=== PATIENT | male | born 1945 | race Two or more races ===

== ENCOUNTER 2025-07-08 05:32 | Emergency (ER) | payer OTHER ==
[~2025-07-08] VITALS: Ht 177.8 cm; Wt 65.4 kg
[2025-07-08 05:39] VITALS: O2SAT 99
[2025-07-08 06:46] LABS: BASOPHILS % 0.7 % (0.0-2.0); EOSINOPHILS % 0.3 % (0.0-5.0); HEMATOCRIT. 37.4 % (42.0-52.0); HEMOGLOBIN. 12.3 g/dL (14.0-18.0); LYMPHOCYTES % 9.7 % (20.0-50.0); MEAN PLATELET VOLUME 8.4 fl (7.4-10.4); MONOCYTES % 3.9 % (2.0-8.0); NEUTROPHILS % 85.4 % (40.0-76.0); PLATELET 197 x1000/uL (130-400); RED BLOOD CELL COUNT 3.85 mill/uL (4.7-6.1); RED CELL DISTRIBUTION WIDTH 14.5 % (11.6-14.6)
[2025-07-08 07:02] LABS: CREATININE 0.9 mg/dL (0.6-1.3)
[2025-07-08 07:03] LABS: TROPONIN I HIGH SENSITIVITY 6 ng/L (3.0-53); UREA NITROGEN BLOOD 9 mg/dL (9-23)
[2025-07-08 07:04] LABS: ASPARTATE AMINOTRANSFERASE 45 IU/L (<34)
[2025-07-08 07:05] LABS: BILIRUBIN DIRECT 0.2 mg/dL (<=3.0); BILIRUBIN TOTAL 0.6 mg/dL (0.1-1.0); PROTEIN TOTAL 5.9 g/dL (6.0-8.3)
[2025-07-08] MEDS: IOHEXOL-350 100 ML BOTTLE ONE (07:08)
[2025-07-08 07:26] LABS: CLARITY URINE CLEAR (CLEAR); COLOR URINE YELLOW (YELLOW); GLUCOSE URINE NEGATIVE (NEGATIVE); KETONES URINE NEGATIVE (NEGATIVE); LEUKOCYTE ESTERASE URINE NEGATIVE (NEGATIVE); NITRITE URINE NEGATIVE (NEGATIVE); OCCULT BLOOD URINE NEGATIVE (NEGATIVE); PH URINE 6.0 (4.5-8.0); PROTEIN URINE NEGATIVE (NEGATIVE); SPECIFIC GRAVITY URINE 1.024 (1.005-1.030); UROBILINOGEN URINE 0.2 E.U./dL (0.2-1.0)
[2025-07-08] MEDS: PIPERACILLIN/TAZO 3.375G/50ML 50 ML IV STA (07:32)
[2025-07-08] MEDS: LACTATED RINGERS 500 ML IV SCH (07:33)
[2025-07-08 07:50] LABS: *AMPHETAMINES SCREEN URINE NEGATIVE (NEGATIVE); *BARBITURATES SCREEN URINE NEGATIVE (NEGATIVE); *BENZODIAZEPINES SCREEN URINE NEGATIVE (NEGATIVE); *COCAINE SCREEN URINE NEGATIVE (NEGATIVE); CANNABINOID URINE SCREEN NEGATIVE (NEGATIVE); ECSTASY MDMA SCREEN URINE NEGATIVE (NEGATIVE); METHADONE URINE SCREEN NEGATIVE (NEGATIVE); OPIATES URINE SCREEN NEGATIVE (NEGATIVE); PHENCYCLIDINE URINE SCREEN NEGATIVE (NEGATIVE)
[2025-07-08 08:00] LABS: INR 1.1
[2025-07-08 10:09] VITALS: BP 159/96; PULSE 88; RESP 20; TEMP 36.7; O2SAT 99
== END 2025-07-08 10:24 | disposition admitted as inpatient to this hospital (09) ==
LOC: ER 05:32 → EDBEDREQ 05:51 → ER 10:24 → CMPBEDREQ 11:18
DX: R41.82 Altered mental status, unspecified (principal); I10 Essential (primary) hypertension; E11.9 Type 2 diabetes mellitus without complications; Z79.899 Other long term (current) drug therapy
CPT/HCPCS: 80076; 80305; 80048; 81003; 80320; 82962; 85025; 85610; 85730; 87040; 84484; 36415; 71045; 70496; 70498; 70450; 93005; 96365; 99291; Q9967; J2543; G0480

== ENCOUNTER 2025-08-12 23:11 | Emergency (ER) | payer OTHER ==
[~2025-08-12] VITALS: Ht 182.9 cm; Wt 82.0 kg
[2025-08-12 23:24] VITALS: O2SAT 100
[2025-08-12] MEDS ORDERED: LORAZEPAM 2MG/ML UD SYRINGE IV NR (23:45)
[2025-08-13] MEDS: LEVETIRACETAM 1000MG PREMIX 100 ML IV ONE (00:04)
[2025-08-13] MEDS: SODIUM CHLORIDE 0.9% 1,000 ML IV ONE (00:05)
[2025-08-13 00:10] LABS: BASOPHILS % 0.8 % (0.0-2.0); EOSINOPHILS % 2.3 % (0.0-5.0); HEMATOCRIT. 38.7 % (42.0-52.0); HEMOGLOBIN. 12.6 g/dL (14.0-18.0); LYMPHOCYTES % 31.6 % (20.0-50.0); MEAN PLATELET VOLUME 8.2 fl (7.4-10.4); MONOCYTES % 9.7 % (2.0-8.0); NEUTROPHILS % 55.6 % (40.0-76.0); PLATELET 200 x1000/uL (130-400); RED BLOOD CELL COUNT 4.03 mill/uL (4.7-6.1); RED CELL DISTRIBUTION WIDTH 13.8 % (11.6-14.6)
[2025-08-13 00:23] LABS: UREA NITROGEN BLOOD 13 mg/dL (9-23)
[2025-08-13 00:24] LABS: CREATININE 1.1 mg/dL (0.6-1.3); TROPONIN I HIGH SENSITIVITY 4 ng/L (3.0-53)
[2025-08-13 00:25] LABS: ETHANOL BLOOD < 10 mg/dL (<10); PROTEIN TOTAL 6.6 g/dL (6.0-8.3)
[2025-08-13 00:26] LABS: ASPARTATE AMINOTRANSFERASE 17 IU/L (<34)
[2025-08-13 00:27] LABS: BILIRUBIN DIRECT 0.1 mg/dL (<=3.0); BILIRUBIN TOTAL 0.3 mg/dL (0.1-1.0)
[2025-08-13] MEDS ORDERED: KEPP500 MT (01:38)
[2025-08-13 03:44] VITALS: BP 138/89; PULSE 88; RESP 17; TEMP 36.9; O2SAT 99
== END 2025-08-13 04:00 | disposition home or self-care (01) ==
LOC: ER 23:11 → CMPBEDREQ 08-13 04:37
DX: R56.9 Unspecified convulsions (principal); E11.9 Type 2 diabetes mellitus without complications; E78.00 Pure hypercholesterolemia, unspecified; I10 Essential (primary) hypertension; Z86.73 Personal history of transient ischemic attack (TIA), and cerebral infarction without residual deficits
CPT/HCPCS: 80076; 80048; 80320; 83880; 83735; 85025; 84484; 36415; 93005; 99285; 70450; 96365; J7030; J1953; J2060; G0480